=== PATIENT | female | born 1980 | race Caucasian/White ===

== ENCOUNTER 2019-09-05 08:36 | Emergency (ER) | payer SELFPAY ==
[~2019-09-05] VITALS: Ht 170 cm; Wt 80.5 kg
--- NOTE | 2019-09-05 08:48 | ED Upper Extremity ---
General Stated Complaint: R HAND INJ Source: patient Exam Limitations: no limitations History of Present Illness Date Seen by Provider: Sep 05, 2019 Time Seen by Provider: 08:34 Initial Comments Patient presents to ER by private conveyance with her significant other chief complaints of weakness and tenderness in the flexion of her fourth digit right hand. Couple days ago she was pulling a box spring out and her hand let go but she says she got her ring finger tip caught on the box spring and hold it and ever since then she's had some pain and tenderness running down the length of her ring finger home of her hand and into her forearm. She has historically fractured her right hand fifth metacarpal. Allergies and Home Medications Allergies Coded Allergies: erythromycin base (Verified Allergy, Unknown, 09/05/19) Home Medications No Active Prescriptions or Reported Meds Patient Home Medication List Home Medication List Reviewed: Yes Review of Systems Constitutional: No chills, No diaphoresis EENTM: No hearing loss, No ear pain Respiratory: No cough, No short of breath Cardiovascular: No chest pain, No edema Gastrointestinal: No abdominal pain, No nausea Past Rzftrgw-Auotxu-Evhzlx Hx Patient Social History Alcohol Use: Denies Use Recreational Drug Use: No Smoking Status: Current Everyday Smoker Type Used: Cigarettes (0.5 ppd) Recent Foreign Travel: No Contact w/Someone Who Travel: No Physical Exam Vital Signs Vital Signs - First Documented 09/05/19 08:41 Temp 35.6 Pulse 84 Resp 16 B/P (MAP) 163/105 (124) Pulse Ox 97 Capillary Refill : Height, Weight, BMI Height: '" Weight: lbs. oz. kg; BMI Method: General Appearance: WD/WN, no apparent distress HEENT: PERRL/EOMI, pharynx normal Neck: full range of motion, normal inspection Cardiovascular: normal peripheral pulses, regular rate, rhythm Respiratory: lungs clear, normal breath sounds, no respiratory distress, no accessory muscle use Gastrointestinal: normal bowel sounds, non tender, soft Shoulder: normal inspection, non-tender, no evidence of injury, normal ROM Elbow/Forearm: normal inspection, non-tender, no evidence of injury, normal ROM, Right Wrist: Yes normal inspection, Yes non-tender, Yes no evidence of injury, Yes normal ROM Hand: normal ROM (she has full range of flexion and extension of her ring finger on the right hand but tenderness on flexion.), Right Progress/Results/Core Measures Results/Orders My Orders Orders - MARITA HERNANDEZ Finger(S) (09/05/19 08:43) Vital Signs/I&O 09/05/19 08:41 Temp 35.6 Pulse 84 Resp 16 B/P (MAP) 163/105 (124) Pulse Ox 97 Progress Progress Note : Time: 09:42 Progress Note Suspect partial avulsion or tendinopathy. A plain film to look at the bone. Diagnostic Imaging Diagonstic Imaging: Xray Plain Films/CT/US/NM/MRI: hand (right) Comments [facility] POS [place], [place] POS NAME: SWAPNA SOU[facility] REC#: [id number] PT STATUS: REG ER : 1980 PHYSICIAN: MARITA HERNANDEZ MD ADMIT DATE: 09/05/19/ER Draft POSDate of Exam:09/05/19 FINGER(S) INDICATION: Injury to the right 4th finger. TIME OF EXAM: 9:02 AM 3 views of the right 4th finger were obtained. Alignment is normal. The phalanges appear to be intact. No fractures are seen. Soft tissues are unremarkable. IMPRESSION: No acute bony abnormality is detected. Dictated on workstation # [id number] Dict: 09/05/19909 Trans: 09/05/19912 [facility] [id number] Interpreted by: MARYANN MARCELINO MD Electronically signed by: Reviewed: Reviewed by Me Departure Impression Primary Impression: Strain of finger of right hand Disposition: 01 HOME, SELF-CARE Condition: Stable Departure-Patient Inst. Decision time for Depature: 09:43 Referrals: NO,LOCAL PHYSICIAN (PCP) Primary Care Physician Patient Instructions: Common Finger Injuries (DC) Add. Discharge Instructions: You have a strain of the flexor tendon of the finger on your right hand. Tylenol and ibuprofen are reasonable for the tenderness. Expect this tenderness and weakness and last for about a week or 2. If it is still significant one week out then you need to follow-up with your primary care doctor for reevaluation and consider at that point referral to occupational therapy versus physical therapy to help strengthen your hand back up. For the next week you should limit lifting with her right fingers anything over 5 pounds. Scripts No Active Prescriptions or Reported Meds Work/School Note: Work Release Form Date Seen in the Emergency Department: Sep 05, 2019 Return to Work: Sep 05, 2019 Restrictions: Need Release from Doctor Other Restrictions Listed Below: Do not lift over 5 pounds with the right hand until 09/12/19. MARITA HERNANDEZ Sep 05, 2019 08:48 POS
--- NOTE | 2019-09-05 09:14 | Diagnostic Imaging Report ---
INDICATION: Injury to the right 4th finger. TIME OF EXAM: 9:02 AM 3 views of the right 4th finger were obtained. Alignment is normal. The phalanges appear to be intact. No fractures are seen. Soft tissues are unremarkable. IMPRESSION: No acute bony abnormality is detected. Dictated by: Dictated on workstation # [id number]
[2019-09-05 09:52] VITALS: BP 156/101
== END 2019-09-05 09:52 | disposition home or self-care (01) ==
LOC: ER 08:37
DX: S66.911A Strain of unspecified muscle, fascia and tendon at wrist and hand level, right hand, initial encounter (principal); F17.210 Nicotine dependence, cigarettes, uncomplicated; Z88.1 Allergy status to other antibiotic agents; W23.1XXA Caught, crushed, jammed, or pinched between stationary objects, initial encounter
CPT/HCPCS: 73140